=== PATIENT | female | born 1945 | race Caucasian/White ===

== ENCOUNTER 2017-12-22 07:54 | Emergency (ER) | payer MEDICARE, BC ==
[2017-12-22 08:23] VITALS: BP 145/95
--- NOTE | 2017-12-22 08:24 | ED ---
Throat Pain/Nasal Congestion - HPI Summary HPI Summary: 72 yr old female with the complaint of decreased hearing in the left ear, pain. Onset a couple of days ago. She was told by her hearing aid tech that she had ear infection in left ear. No other complaints. - History of Current Complaint Chief Complaint: UCEar Time Seen by Provider: 12/22/17 08:16 - Allergies/Home Medications Allergies/Adverse Reactions: Allergies Allergy/AdvReac Type Severity Reaction Status Date / Time azithromycin Allergy Nausea And Verified 12/22/17 08:08 Vomiting erythromycin base Allergy Nausea And Verified 12/22/17 08:08 Vomiting Sulfa (Sulfonamide Allergy Nausea And Verified 12/22/17 08:08 Antibiotics) Vomiting sulfamethoxazole Allergy Nausea And Verified 12/22/17 08:08 [From Bactrim] Vomiting trimethoprim [From Bactrim] Allergy Nausea And Verified 12/22/17 08:08 Vomiting aspirin AdvReac See Comment Verified 12/22/17 08:08 Home Medications: Home Medications Calcium Carbonate [Calcium/C/D] 1 chw PO EVERY OTHER DAY 12/22/17 [History Confirmed 12/22/17] Cholecalciferol TAB* [Vitamin D TAB*] 1,000 unit PO DAILY 12/22/17 [History Confirmed 12/22/17] Lovastatin [Altoprev] 40 mg PO DAILY 12/22/17 [History Confirmed 12/22/17] PMH/Surg Hx/FS Hx/Imm Hx Cardiovascular History: Denies: Hx Pacemaker/ICD Sensory History: Denies: Hx Hearing Aid Psychiatric History: Denies: Hx Panic Disorder - Cancer History Hx Chemotherapy: No Hx Radiation Therapy: No - Surgical History Surgery Procedure, Year, and Place: 1974- OOPHERECTOMY;1979- HYSTERECTOMY; 1995 - SINUS SURGERY; FRACTURED FOOT - Lt (?DATE); 2010 & 2011(FEBRUARY) [facility]TE H[facility]MER TOE SURGERY, Lump on chest 2007-benign Infectious Disease History: No Infectious Disease History: Denies: Traveled Outside the [place] in Last 30 Days - Social History Alcohol Use: None Substance Use Type: Reports: None Smoking Status (MU): Never Smoked Tobacco Review of Systems Constitutional: Negative Positive: Ear Ache All Other Systems Reviewed And Are Negative: Yes Physical Exam Triage Information Reviewed: Yes Vital Signs On Initial Exam: Initial Vitals Temp Pulse Resp BP Pulse Ox 97.4 F 90 16 145/95 100 12/22/17 08:08 12/22/17 08:08 12/22/17 08:08 12/22/17 08:08 12/22/17 08:08 Vital Signs Reviewed: Yes Appearance: Positive: Well-Appearing, No Pain Distress, Well-Nourished Skin: Positive: Warm Head/Face: Positive: Normal Head/Face Inspection Eyes: Positive: EOMI ENT: Positive: TM red - left with effusion and red Neck: Positive: Nontender Respiratory/Lung Sounds: Positive: Clear to Auscultation, Breath Sounds Present Cardiovascular: Positive: RRR. Negative: Murmur Abdomen Description: Positive: Nontender Musculoskeletal: Positive: Strength/ROM Intact Neurological: Positive: Sensory/Motor Intact, Alert, Oriented to Person Place, Time, CN Intact II-III Psychiatric: Positive: Normal - [place] Coma Scale Best Eye Response: 4 - Spontaneous Best Motor Response: 6 - Obeys Commands Best Verbal Response: 5 - Oriented Coma Scale Total: 15 Diagnostics - Vital Signs Vital Signs Temp Pulse Resp BP Pulse Ox 12/22/17 08:08 97.4 F 90 16 145/95 100 - Laboratory Lab Statement: Any lab studies that have been ordered have been reviewed, and results considered in the medical decision making process. EENT Course/Dx - Course Course Of Treatment: Female with Otitis Media. Rx Amoxicillin. DC home. - Diagnoses Provider Diagnoses: Otitis media Discharge - Sign-Out/Discharge Documenting (check all that apply): Discharge - Discharge Plan Condition: Good Disposition: HOME Prescriptions: Amoxicillin PO (*) [Amoxicillin 500 MG CAP*] 500 mg PO TID #30 cap Patient Education Materials: Ear Infection (ED), Hypertension (ED) Referrals: Lisbet Garcia MD [Primary Care Provider] - 2 Days - Billing Disposition and Condition Condition: GOOD Disposition: HOME
== END 2017-12-22 08:28 | disposition home or self-care (01) ==
LOC: UCCORT 07:54
DX: H65.92 Unspecified nonsuppurative otitis media, left ear (principal); H66.91 Otitis media, unspecified, right ear; Z88.6 Allergy status to analgesic agent; Z88.1 Allergy status to other antibiotic agents; Z88.2 Allergy status to sulfonamides
CPT/HCPCS: 99212; G0463